=== PATIENT | male | born 1985 | race Caucasian/White ===

== ENCOUNTER 2021-11-15 19:49 | Emergency (ER) | payer OTHER, SELFPAY ==
--- NOTE | ~2021-11-15 | CT_ITS ---
EXAMINATION: CT abdomen pelvis w con DATE: 11/15/2021 21:16 INDICATION: LLQ pain, dysuria, fever TECHNIQUE: Computed tomography (CT) of the abdomen and pelvis was performed with 100 mL Omnipaque-350 intravenous contrast. Automated exposure control and iterative reconstruction technique were employe d. The dose-length product was 1509.31 mGy-cm. COMPARISON: None. FINDINGS: Lower thorax: Unremarkable Liver: Normal. Biliary/Gallbladder: Gallbladder is normal. No bile duct dilation. Pancreas: No mass or duct dilation. Spleen: Normal. Adrenals:No mass. Kidneys: No mass, stone, or hydronephrosis. GI tract: No small or large bowel dilation. Multiple loops of mildly edematous small bowel in the mid abdomen. Normal appendix. Diverticulosis without diverticulitis. Mesentery/Peritoneum: Mesenteric lymphadenopathy. Retroperitoneum: No mass. Pelvis: Pelvic organs are within normal limits. Soft Tissues: Soft tissues and body wall unremarkable. Bones: No acute osseous finding. IMPRESSION: Mild infectious or inflammatory changes involving several loops of mid abdominal small bowel. Mesente meghan lymphadenopathy. Ischemia could also be considered if there is a history of vasculitis. Reviewed, dictated and finalized at location K. IMPRESSION: Mild infectious or inflammatory changes involving several loops of mid abdomina l small bowel. Mesenteric lymphadenopathy. Ischemia could also be considered if there is a history of vasculitis.
[2021-11-15 19:51] VITALS: BP 136/91; PULSE 119; RESP 16; TEMP 36.7; O2SAT 99
--- NOTE | 2021-11-15 20:05 | ED.MALEGU ---
HPI - Male Genitourinary General Chief complaint: Urogenital-Male Stated complaint: UTI Symtpoms, Fever Time Seen by Provider: 11/15/21 19:51 History of Present Illness HPI Narrative: 36-year-old male presents the emergency room for sudden onset of lower abdominal pain, dysuria, and fever. Patient states that he was driving home from vacation earlier today when he started to develop lower abdominal pain and dysuria. Noticed that there was blood in his urine this morning. Denies any back pain or flank pain. Is also complaining of nausea which is subsided. States his fever is a T-max of 103. Related Data Allergies Allergy/AdvReac Type Severity Reaction Status Date / Time No Known Allergies Allergy Mild Verified 09/08/09 05:39 Review of Systems Review of Systems: CONSTITUTIONAL: Denies fever, chills, or sweats. EYES: Denies visual changes, redness, or discharge. ENT: Denies rhinorrhea, congestion, sore throat, or otalgia. CARDIOVASCULAR: Denies chest pain, palpitations, or edema. RESPIRATORY: Denies cough or dyspnea. GASTROINTESTINAL: Reports abdominal pain, nausea reports GENITOURINARY: Reports dysuria or hematuria. SKIN: Denies rash or itching. MUSCULOSKELETAL: Denies back pain, joint pain, or myalgia. NEUROLOGIC: Denies headache, numbness, dizziness, or weakness. PSYCHIATRIC: Denies anxiety or depression. PMFSH Past Medical History Medical History Hyperlipidemia Hypothyroidism Surgical History Surgical History S/P emergency tracheotomy for assistance in breathing Due to infected tooth removal Family History Family History Mother Patient's mother is in good health Father Patient's father is in good health Sibling Patient's brother is in good health Social History Social History Smoking status: Never smoker Alcohol intake: current Exam Narrative: GENERAL: Ill-appearing, well-nourished, no physical limitations, and in no acute distress. Diaphoretic HEAD: Normocephalic, atraumatic. EYES: Conjunctivae normal, PERRLA and EOMI. CHEST: Clear to auscultation. No respiratory distress. No wheezes rales or rhonchi. No tenderness. HEART: Regular rate and rhythm. No murmur heard. Normal peripheral pulses. ABDOMEN: Soft, left lower quadrant/suprapubic tenderness, nondistended, normal active bowel sounds. BACK: No CVA tenderness EXTREMITIES: Normal range of motion. No edema. No clubbing or cyanosis SKIN: Warm, dry, no rash. No noted wounds NEURO: No focal deficits. Alert and oriented x3. MAEW. CN's II-XI intact bilaterally, normal gait PSYCH: Cooperative. Normal mood and affect. Course Vital Signs Vital signs: Vital Signs Temperature 36.7 C 11/15/21 19:51 Pulse Rate 119 H 11/15/21 19:51 Respiratory Rate 16 11/15/21 19:51 Blood Pressure 136/91 H 11/15/21 19:51 Pulse Oximetry 99 11/15/21 19:51 Oxygen Delivery Room Air 11/15/21 19:51 Temperature 36.7 C 11/15/21 19:51 Pulse Rate 119 H 11/15/21 19:51 Respiratory Rate 16 11/15/21 19:51 Blood Pressure 136/91 H 11/15/21 19:51 Pulse Oximetry 99 11/15/21 19:51 Oxygen Delivery Room Air 11/15/21 19:51 MDM - Male Genitourinary MDM Narrative Medical decision making narrative: 36-year-old male presented emergency room complaints of abdominal pain. CT abdomen showed inflammatory changes at the small bowel, mesenteric adenitis. CBC and CMP were unremarkable. Urine showed no signs of hematuria or infection. Patient likely experiencing a viral enteritis. Lab Data Labs: Urine Characteristics Cloudy Discharge Plan Discharge Clinical Impression: Enteritis Patient Disposition: Home, Self-Care Condition: Stable Instructions: Ant
[2021-11-15 20:25] LABS: Appearance Urine Clear (Clear); Bilirubin Urine 1+ (Negative); Blood Urine Negative (Negative); Color Urine Yellow (Yellow); Glucose Urine UA Negative (Negative); Ketones Urine Negative (Negative); Leukocyte Esterase Ur 1+ LEU/UL (Negative); Nitrate Urine Negative (Negative); Protein Urine 2+ mg/dL (Negative); Urobilinogen Urine 0.2 mg/dL (<2.0); pH Urine 5.5 (5.0-9.0)
[2021-11-15 20:32] LABS: Mucus Urine Rare /lpf; RBC Urine 0-2 /hpf (0-2); Squamous Epithelial Cell Urine Occasional /hpf (Few)
[2021-11-15 20:33] LABS: Add Urine Microscopic? YES
[2021-11-15] MEDS: SODIUM CHLORIDE 0.9% IV 1,000 ML 999 ML IV CONT (20:35)
[2021-11-15 20:46] LABS: Lactic Acid Reflex 1.3 mmol/L (0.7-2.0)
[2021-11-15 20:47] LABS: Alanine Aminotransferase 29 U/L (6-50); Albumin Level 4.3 g/dL (3.5-5.1); Alkaline Phosphatase 70 U/L (38-126); Anion Gap 10 mmol/L (8-16); Aspartate Amino Transferase 31 U/L (17-59); Basophils Absolute Auto 0.1 K/mm3 (0.0-0.1); Basophils Percent Auto 0.7 % (0.2-1.2); Bilirubin,Total 1.2 mg/dL (0.2-1.3); Blood Urea Nitrogen 15 mg/dL (9-20); Carbon Dioxide 22 mmol/L (22-30); Chloride 102 mmol/L (98-107); Eosinophils Percent Auto 0.1 % (0-4.4); Estimated CRCL calculation 146 ml/min; Estimated Glomerular Filt Rate > 60; Glucose 102 mg/dL (65-110); Hematocrit 44.4 % (42.0-52.0); Hemoglobin 15.3 g/dL (14.0-18.0); Immature Granulocyte Absolute 0.03 K/mm3 (0.00-0.031); Immature Granulocyte Percent A 0.4 % (0-0.5); Lymphocytes Absolute Auto 1.86 K/mm3 (0.9-3.2); Lymphocytes Percent Auto 26.9 % (18.3-44.2); Mean Corpuscular HGB Conc 34.5 g/dl (32-36); Mean Corpuscular Hemoglobin 28.7 pg (26-34); Mean Corpuscular Volume 83.3 fl (80-100); Mean Platelet Volume 9.4 fl (7.4-10.4); Monocytes Absolute Auto 0.5 K/mm3 (0.1-0.6); Monocytes Percent Auto 7.4 % (2.6-8.5); Neutrophils Absolute Auto 4.5 K/mm3 (1.3-6.7); Neutrophils Percent Auto 64.5 % (45.5-73.1); Platelet Count Result 214 k/mm3 (150-375); Potassium 3.7 mmol/L (3.4-5.0); Red Blood Count 5.33 M/mm3 (4.6-6.20); Red Cell Distribution Width 13.2 % (11.5-14.5); Sodium 134 mmol/L (137-145); White Blood Count 6.9 K/mm3 (4.5-10.0)
== END 2021-11-15 22:35 | disposition home or self-care (01) ==
PROVIDERS: Emergency Provider Nurse Practitioner Family; PCP Internal Medicine
DX: K52.9 Noninfective gastroenteritis and colitis, unspecified (principal); E78.5 Hyperlipidemia, unspecified; E03.9 Hypothyroidism, unspecified
CPT/HCPCS: 36415; 74177; 80053; 81001; 83605; 85025; 87086; 96360; 96361; 99284; J7030; Q9967

== ENCOUNTER → 2023-04-21 14:40 | Outpatient (CLI) | payer OTHER, SELFPAY ==
--- NOTE | ~2023-04-21 | US_ITS ---
EXAMINATION: US soft tissue UE RT DATE: 04/21/2023 15:03 INDICATION: right small finger foreign body . TECHNIQUE: Grayscale and Doppler ultrasound images of the were obtained. COMPARISON: None. FINDINGS: The palmar side of the tip of the right little finger was sonographically interrogated, rev ealing a linear echogenic foreign body situated obliquely in the soft tissues, measuring up to 8mm. D epth of the most superficial portion of the foreign body is approximately 2 mm. There is surrounding hyperemia and soft tissue swelling as well as a lentiform shaped, subdermal hypoechoic collection sup erficial to the foreign body. IMPRESSION: 8 mm foreign body in the palmar soft tissues of the right fifth finger, with surrounding soft tissue swelling and hyperemia. Cellulitis is not excluded. Overlying subdermal collection may represent tacho atous fluid or phlegmon. No organized abscess detected. Reviewed, dictated and finalized at location K. R DIAMETER TECHNICIAN IMPRESSION: 8 mm foreign body in the palmar soft tissues of the right fifth finger, with bell rrounding soft tissue swelling and hyperemia. Cellulitis is not excluded. Overl mehran subdermal collection may represent edematous fluid or phlegmon. No organiz ed abscess detected.
== END ==
PROVIDERS: PCP Plastic Surgery; Visit Provider Plastic Surgery
DX: S60.456A Superficial foreign body of right little finger, initial encounter (principal); X58.XXXA Exposure to other specified factors, initial encounter
CPT/HCPCS: 76882

== ENCOUNTER → 2023-05-10 14:23 | Outpatient (REF) | payer OTHER, SELFPAY | LOC: ANHLAB 14:23 | PROVIDERS: PCP Plastic Surgery; Visit Provider Plastic Surgery | DX: L72.0 Epidermal cyst (principal); Z18.33 Retained wood fragments | CPT/HCPCS: 88305 ==

== ENCOUNTER 2023-09-28 09:47 | Outpatient (CLI) | payer OTHER, SELFPAY ==
--- NOTE | ~2023-09-28 | US_ITS ---
EXAMINATION: US thyroid DATE: 09/28/2023 10:09 INDICATION: Autoimmune thyroiditis. TECHNIQUE: Multiple ultrasound images of the thyroid were obtained. COMPARISON: None. FINDINGS: The right thyroid lobe measures 3.6 x 1.6 x 1.6 cm. The left thyroid lobe measures 3.9 x 1.6 x 1.3 c m. The isthmus measures 0.4 cm. There is heterogeneous echogenicity throughout the thyroid gland, whi ch reduces sensitivity for nodules infection. No discrete nodules identified. Normal vascular flow is present. IMPRESSION: Heterogeneous thyroid parenchyma as can be seen with Toni thyroiditis and Graves disease. Reviewed, dictated and finalized at location K.
== END 2023-09-28 09:48 ==
PROVIDERS: PCP Clinical Nurse Specialist; Visit Provider Clinical Nurse Specialist
DX: E06.3 Autoimmune thyroiditis (principal)
CPT/HCPCS: 76536

== ENCOUNTER 2023-12-03 01:45 | Emergency (ER) | payer OTHER, SELFPAY ==
--- NOTE | 2023-12-20 10:18 | ED.DENTAL ---
HPI - Dental/Oral General Chief complaint: Dental/Oral Source: patient Mode of arrival: ambulatory Limitations: no limitations History of Present Illness HPI Narrative: This is a 38 year old male that presents to the ER for toothache. Reports he has been seeing a dentist for this. Was unable to get ahold of them to get pain medication prescribed. He is currently taking Augmentin. Denies fevers. MD Complaint: tooth pain Related Data Allergies Allergy/AdvReac Type Severity Reaction Status Date / Time No Known Allergies Allergy Mild Verified 12/03/23 22:36 Review of Systems Review of Systems: CONSTITUTIONAL: Denies fever ENT: Reports dentalgia All systems reviewed & are unremarkable except as noted in HPI and below PMFSH Past Medical History Medical History Hyperlipidemia Hypothyroidism Surgical History Surgical History S/P emergency tracheotomy for assistance in breathing Due to infected tooth removal Family History Family History Mother Patient's mother is in good health Father Patient's father is in good health Sibling Patient's brother is in good health Social History Social History (Updated 04/19/23 @ 08:12 by Annalisa Lovett CMA) Smoking status: Never smoker Alcohol intake: current Do You Feel Safe in your Home?: Yes Lack of Transportation: No Lack of Food: Never True Current Housing: I Have Housing Concerned About Future Housing: No Difficulty Paying Gas/Electric Bills: No Difficulty Paying for Meds: No Currently Unemployed: No Education: Bachelor's Degree Difficulty w/ Childcare or Family Care: No Exam Narrative: GENERAL: Well-appearing, well-nourished, and in no acute distress. HEAD: Normocephalic, atraumatic. EYES: EOMI. ENT: Nares clear, no rhinorrhea or epistaxis. Mucous membranes moist. Oropharynx without tonsillar hypertrophy exudate or other lesions. No focal edema or fluctuance to suggest abscess NECK: Supple. No adenopathy or masses. CHEST: Clear to auscultation. No respiratory distress. No wheezes rales or rhonchi HEART: Regular rate and rhythm. No murmur heard. Normal peripheral pulses. EXTREMITIES: Normal range of motion. No edema. SKIN: Warm, dry, no rash. NEURO: No focal deficits. Alert and oriented x3. PSYCH: Normal mood and affect MDM - Dental/Oral MDM Narrative Medical decision making narrative: Patient presents to the emergency department for dentalgia. He is afebrile and nontoxic appearing. Currently seeing a dentist for this and on Augmentin. No findings of abscess on exam. Given a dose of pain medication tonight. Will continue to follow up with his dentist. He was given warnings to return to the ER Differential Diagnosis Differential diagnosis: Likely toothache and dental abscess Critical Care Time Critical Care Time Critical Care Time: No Discharge Plan Discharge Clinical Impression: Toothache Patient Disposition: Home, Self-Care Condition: Stable Instructions: Toothache (ED) Prescriptions: No Action levothyroxine 125 mcg tablet See Rx Instructions .ROUTE .COMPLEX Qty: 180 1RF Dose Instruction: TAKE 2 TABLETS BY MOUTH DAILY Rx Instructions: TAKE 2 TABLETS BY MOUTH DAILY. Follow-up/Referrals: Cathryn Plata, [facility] [Primary Care Provider] -
== END 2023-12-03 04:41 | disposition home or self-care (01) ==
LOC: ANHED 04:37
PROVIDERS: Emergency Provider Physician Assistant; PCP Clinical Nurse Specialist
DX: K08.89 Other specified disorders of teeth and supporting structures (principal); E78.5 Hyperlipidemia, unspecified; E03.9 Hypothyroidism, unspecified
CPT/HCPCS: 99281

== ENCOUNTER 2023-12-03 22:25 | Emergency (ER) | payer OTHER, SELFPAY ==
[2023-12-03 22:31] VITALS: BP 135/95; PULSE 82; RESP 16; TEMP 36.3; O2SAT 97
== END 2023-12-03 22:31 | disposition left against medical advice (07) ==
PROVIDERS: PCP Clinical Nurse Specialist
DX: K04.7 Periapical abscess without sinus (principal)
CPT/HCPCS: 99199

== ENCOUNTER 2024-08-28 11:18 | Outpatient (CLI) | payer OTHER, SELFPAY ==
--- NOTE | ~2024-08-28 | XR_ITS ---
EXAM: XR knee LT 3V DATE: 08/28/2024 11:30 HISTORY: Anterior Lt knee pain x 2 days . COMPARISON: None available. FINDINGS: Normal mineralization. No fracture or dislocation. No lytic or blastic lesion. Mild medial joint space narrowing. Minimal quadriceps enthesopathy. Moderate patellar tendon enthesopathy at its origin and insertion. Small-volume joint fluid. No erosion or periosteal change. Soft tissues within normal limits. IMPRESSION: Degenerative changes in the medial compartment. Patellar tendon enthesopathy. Small joint effusion. Reviewed, dictated and finalized at location K. IMPRESSION: Degenerative changes in the medial compartment. Patellar tendon ent hesopathy. Small joint effusion.
== END 2024-08-28 11:19 | disposition home or self-care (01) ==
LOC: GOSHIMG 11:18
PROVIDERS: PCP Clinical Nurse Specialist; Visit Provider Clinical Nurse Specialist
DX: M25.562 Pain in left knee (principal)
CPT/HCPCS: 73562

== ENCOUNTER 2024-09-05 13:32 | Outpatient (CLI) | payer OTHER, SELFPAY ==
--- NOTE | ~2024-09-05 | MR_ITS ---
MRI of the left knee Clinical history: Osteoarthritis Technique: Coronal proton density and proton density-weighted images, sagittal proton-density and T2 fat-sat images, and axial proton-density fat-saturated images were acquired. Findings: Anterior and posterior cruciate ligaments are intact. Medial collateral ligament and the la teral collateral ligament complex are intact. Popliteus tendon is intact. Medial and lateral menisci are intact, without evidence of tear. Articular cartilage is relatively well preserved throughout the knee. Bone marrow signals are unremar kable. Extensor mechanism is intact. No significant joint effusion or Griffin's cyst. Impression: No significant abnormality seen. Reviewed, dictated and finalized at location . Impression: No significant abnormality seen.
== END 2024-09-05 13:33 | disposition home or self-care (01) ==
LOC: GOSHIMG 13:32
PROVIDERS: PCP Clinical Nurse Specialist; Visit Provider Clinical Nurse Specialist
DX: M17.12 Unilateral primary osteoarthritis, left knee (principal)
CPT/HCPCS: 73721